=== PATIENT | female | born 1940 | race Caucasian/White ===

== ENCOUNTER 2016-06-18 12:14 | Emergency (ER) | payer MEDICARE, MEDICAID ==
[~2016-06-18] VITALS: Ht 162.6 cm; Wt 53.1 kg
[~2016-06-18 12:14] MED LIST: AMLO2.5T PO; LORA0.5T PO; MTH10T PO; PRAV10TA2 PO
[2016-06-18 12:19] VITALS: BP 186/83; PULSE 83; RESP 20; O2SAT 100
[2016-06-18 13:39] LABS: BASOPHILS % (AUTO) 0.2 % (0-3); EOSINOPHILS % (AUTO) 0.2 % (0-5); MONOCYTES % (AUTO) 4.7 % (4-12); Mean Corpuscular Hemoglobin 32.6 pg (27.0-35.0); Mean Corpuscular Volume 96.1 fL (81-100); NEUTROPHILS % (AUTO) 81.8 % (40-74); Platelet Count 214 bil/L (150-400)
[2016-06-18 13:55] LABS: Magnesium 2.1 mg/dL (1.6-2.6)
--- NOTE | 2016-06-18 15:00 | ED.REPORT ---
HPI-General Illness Date of Service Jun 18, 2016 ED Provider: Doc,Ed MD The patient is a 75 year old female with history of hypertension who presents to the emergency department with multiple complaints. Over the last month her blood pressure has been more elevated. Today she took her blood pressure at [employer] and it was at 210/96. She has also noticed intermittent numbness, weakness, and shakiness, in her upper and lower extremities. She has also felt off balance. She denies headache, speech changes or visual changes. She has been experiencing abdominal pain and is scheduled to have a CT scan on Tuesday. She denies any recent illnesses. Nursing Notes Stated Complaint: SHAKING/LEGS AND ARMS NUMB Chief Complaint: Neuro Symptoms/ Deficits Nursing Notes Reviewed: Yes Allergies: Coded Allergies: amitriptyline (Verified Allergy, Unknown, 02/18/16) citalopram (Verified Allergy, Unknown, 02/18/16) codeine (Verified Allergy, Unknown, 02/18/16) duloxetine (Verified Allergy, Unknown, 02/18/16) hydrocodone (Verified Allergy, Unknown, 02/18/16) olanzapine (Verified Allergy, Unknown, 02/18/16) tramadol (Verified Allergy, Unknown, 02/18/16) Scheduled Amlodipine (Amlodipine) 2.5 Mg Tablet 2.5 MG PO DAILY Lisinopril (Lisinopril) 5 Mg Tablet 5 MG PO DAILY Methadone (Methadone) 10 Mg Tab 10 MG PO BID Pravastatin (Pravastatin) 10 Mg Tablet 5 MG PO HS Scheduled PRN Lorazepam (Lorazepam) 0.5 Mg Tablet 0.5-1 MG PO HS PRN PRN For Insomnia General Time Seen by MD: 15:00 Chief Complaint Multip medical complaints Hx Obtained From: Patient, Daughter Arrived By: Walk-in Sudden in Onset?: No Onset Occurred: More than a week ago... Symptom Duration: Since onset Severity: Current: No pain currently Severity: Maximum: No pain Recent Healthcare: No recent hospitalization Similar Sx Previous: No Past Medical History Past Medical History Hypertension Kidney stones Fibromylagia Chronic back pain Osteoarthritis TIA Depression Hyperparathyroidism Carotid artery stenosis Past Surgical History Left carotid endarterectomy Reports: Appendectomy, Hysterectomy, Tonsillectomy Family History Noncontributory Smoking History Current Every Day Smoker Social History Other Social History: Good social support, Local resident Ambulatory Status Independent Review of Systems +elevated blood pressure Full Review of Systems Constitutional: Denies: Fever Ears / Nose / Throat: Denies: Nasal congestion, Sore throat Respiratory: Denies: Non-productive cough, Prod cough, green, Prod cough, white , Prod cough, yellow GI: Reports: Abdominal pain, Denies: Diarrhea, Vomiting Neurologic: Reports: Focal weakness, Numbness, Problem walking (off-balance), Shaking, Denies: Headache, Slurred speech, Unable to speak, Vision change Complete sys rev & neg: except as marked. Physical Exam Vital Signs Vital Signs Date Time Temp Pulse Resp B/P Pulse Ox O2 Delivery O2 Flow Rate FiO2 06/18/16 16:15 36.6 62 16 159/73 99 Room Air 06/18/16 15:49 36.6 62 16 159/73 99 Room Air 06/18/16 12:19 36.9 83 20 186/83 100 Room Air Initial VS: Reviewed Head / Eyes: Atraumatic, Normocephalic, PERRL ENT: Mucous membranes moist, Conjunctiva normal, No scleral icterus Neck: Supple, Non-tender, Full range of motion Respiratory: Breath sounds normal, Clear to auscultation, No respiratory distress Cardiovascular: Regular rate & rhythm, Heart sounds normal, Intact distal pulses Abdomen / GI: Soft, Non-tender, No guarding, No rebound, No distention Lymphatic: No lymphadenopathy Extremities: No swelling, No tenderness Skin: Warm, Dry, No cyanosis Psychiatric: Mood/affect normal, Behavior normal, Normal thought content General/Constitutional: Awake, Alert, Cooperative Neurologic: Oriented X3, Speech NL, No motor deficits, No sensory deficits, Memory NL 5/5 strength to her upper and lower extremities. No involuntary spasms. Interpretation & Diagnostics Lab Results Interpretation Result Diagram: 06/18/16 1326 06/18/16 1326 Test 06/18/16 13:26 White Blood Count 6.2th/mm3 (3.8-10.1) Red Blood Count 4.11mil/mm3 (3.90-5.20) Hemoglobin 13.4g/dL (12.0-15.6) Hematocrit 39.5% (35.0-46.0) Mean Corpuscular Volume 96.1fL (81-100) Mean Corpuscular Hemoglobin 32.6pg (27.0-35.0) Mean Corpuscular Hemoglobin Concent 33.9% (32.0-37.0) Red Cell Distribution Width 12.4% (12.3-15.4) Platelet Count 214bil/L (150-400) Neutrophils (%) (Auto) 81.8% (40-74) Lymphocytes (%) (Auto) 12.9% (14-46) Monocytes (%) (Auto) 4.7% (4-12) Eosinophils (%) (Auto) 0.2% (0-5) Basophils (%) (Auto) 0.2% (0-3) Sodium Level 135mEq/L (134-144) Potassium Level 4.4mEq/L (3.5-5.2) Chloride Level 98mEq/L (97-108) Carbon Dioxide Level 21mmol/L (18-29) Blood Urea Nitrogen 17mg/dL (8-27) Creatinine 1.24mg/dL (0.57-1.00) Estimat Glomerular Filtration Rate 61mL/min (>59) Glucose Level 120mg/dL (60-99) Calcium Level 11.3mg/dL (8.5-10.1) Magnesium Level 2.1mg/dL (1.6-2.6) Total Bilirubin 0.4mg/dL (0.0-1.2) Aspartate Amino Transf (AST/SGOT) 25U/L (0-50) Alanine Aminotransferase (ALT/SGPT) 20U/L (0-32) Alkaline Phosphatase 71U/L (25-165) Total Protein 7.4g/dL (6.4-8.4) Albumin 4.8g/dL (3.4-5.0) Lipase 24U/L (13-60) Hold Stroud Top Tube Received (Received) Re-Eval/Medical Decision Med Decision/Clinical Course Overall patient has a very onset of symptomatology that does not seem to fit with stroke acute CT, life-threatening vascular injury, autoimmune disorder, Guillain-Bermudez or other progressive neurologic disease that would require her to be admitted. Hopefully her chief complaint was that incidentally her blood pressure was elevated. She does have mild hypercalcemia of unclear etiology but does not need immediate attention. I did strongly encourage her to follow-up with her primary care doctor for ongoing symptoms and return here as needed if worse. Source of Hx: Old records, Family Time of Eval: 15:13 Re-Evaluation/Progress Note: Discussed plan for workup and discharge. Counseled Regarding: Diagnosis, Lab results, Need for follow-up, When/why to return to ED Discharge & Departure Primary Impression: Hypertension Hypertension type: unspecified secondary hypertension Qualified Code: I15.9 - Secondary hypertension, unspecified Additional Impression: History of paresthesia Discharge Condition All VS Reviewed: Yes Condition: Stable Additional Instructions: Thank you for entrusting us with your care today. I had lisinopril to your other medications. Follow-up with your primary care doctor as planned early next week. Please return to the emergency department for any new or concerning symptoms. Referrals: Karsten Pearce MD (PCP) Scribe Attestation Portions of this note were transcribed by Pretty Zhu. I, Dr. Salazar personally performed the history, physical exam and medical decision-making; I reviewed and confirmed the accuracy of the information in the transcribed note. Signed by: Lenny Mccarthy, 06/18/2016 at 1605. copies to: Karsten Pearce MD, Timothy S DO Jun 18, 2016 15:00 Pretty Zhu Jun 18, 2016 15:12
[2016-06-18 15:49] VITALS: BP 159/73; PULSE 62; RESP 16; O2SAT 99
[2016-06-18] MEDS ORDERED: LISI-571 PO (15:52)
[2016-06-18 16:15] VITALS: BP 159/73; PULSE 62; RESP 16; O2SAT 99
[2016-08-04] MEDS ORDERED: ZLP10T PO (14:37)
[2016-08-04] MEDS ORDERED: FLUT16SP NS (14:37)
[2016-08-04] MEDS ORDERED: ASPI-973 PO (14:37)
== END 2016-06-18 16:12 | disposition home or self-care (01) ==
LOC: SED 12:14
DX: I15.9 Secondary hypertension, unspecified (principal); Z86.73 Personal history of transient ischemic attack (TIA), and cerebral infarction without residual deficits; F17.200 Nicotine dependence, unspecified, uncomplicated; Z90.710 Acquired absence of both cervix and uterus

== ENCOUNTER 2016-08-05 07:45 | Day surgery (SDC) | payer MEDICARE, MEDICAID ==
[2016-08-05] VITALS (7 sets, daily range): BP systolic 132–141; BP diastolic 53–59; PULSE 46–70; RESP 16–17; O2SAT 94–100
[~2016-08-05] VITALS: Ht 162.6 cm; Wt 55.2 kg
[~2016-08-05 07:45] MED LIST changes: +ASPI-973 PO; +FLUT16SP NS; +ZLP10T PO
[2016-08-05] MEDS ORDERED: Propofol 10,000 mCg/mL 20 mL Inj ONE (07:46)
[2016-08-05] MEDS ORDERED: Ondansetron 2 mg/mL 2 mL Inj ONE (07:46)
[2016-08-05] MEDS ORDERED: Dexamethasone 4 mg/mL Inj ONE (07:46)
--- NOTE | 2016-08-05 08:36 | DRSVH ---
PROCEDURE: X-RAY KUB ([id number]) INDICATIONS: LEFT URETERAL STONE TECHNIQUE: One view of the abdomen acquired. COMPARISON: [facility], CR, XR KUB, 02/19/2016, 10:11. [facility], CT, CT A BD PELVIS W CON, 06/22/2016, 14:58. [facility], CR, XR KUB, 03/03/2016, 9:06. FINDINGS: Surgical changes and devices: None. Bowel: Bowel gas pattern is normal. Soft tissues: 1 cm calcification projected over the left flank in the region of the proximal anterior . Multiple right pelvic calcifications again noted related to phleboliths. Bones: No suspicious bony lesions. IMPRESSION: 1 cm proximal left ureteral calcification similar in position to prior CT scan. Dictated by: Yuri Rodriguez [facility] Interpreted: William Bray MD on 08/05/2016 at 8:33 Transcribed by: VIJAY on 08/05/2016 at 8:36 Approved by: William Bray M.D. on 08/05/2016 at 12:29
[2016-08-05] MEDS: Lactated Ringer's 1,000 ML IV SCH ×2 (08:48→10:13)
[2016-08-05] MEDS ORDERED: oxyCODONE-Acetamin 5-325 mg Tablet PO PRN (10:30)
[2016-08-05] MEDS ORDERED: Lactated Ringer's 500 ML IV PRN (10:34)
[2016-08-05] MEDS ORDERED: Lactated Ringer's 1,000 ML IV SCH (10:34)
[2016-08-05] MEDS ORDERED: Labetalol 5 mg/mL 4 mL Inj IV PRN (10:35)
[2016-08-05] MEDS ORDERED: Phenylephrine 10,000 mCg/mL Inj IVPUSH PRN (10:35)
[2016-08-05] MEDS ORDERED: Ondansetron 2 mg/mL 2 mL Inj IVPUSH PRN (10:35)
[2016-08-05] MEDS ORDERED: fentaNYL-PF 50 mCg/mL 2 mL Inj IVPUSH PRN (10:35)
[2016-08-05] MEDS ORDERED: EPHEDrine Sulfate 50 mg/mL Inj IVPUSH PRN (10:35)
[2016-08-05] MEDS ORDERED: Atropine 0.4 mg/mL Inj IVPUSH PRN (10:35)
--- NOTE | 2016-08-05 10:37 | PCM.HPANE ---
Patient Data Surgeon Admitting Provider: Attending Provider:Marisela Lovell MD Primary Care Physician:Karsten Perace MD Other Provider:[facility] Reason for Visit Left Ureteral Stone Ht/WT & BMI Height (Feet): 5 Height (Inches): 4 Weight (Kilograms): 55.2 Body Mass Index 20.00 Allergies Coded Allergies: amitriptyline (Verified Allergy, Unknown, 08/04/16) citalopram (Verified Allergy, Unknown, 08/04/16) codeine (Verified Allergy, Unknown, 08/04/16) duloxetine (Verified Allergy, Unknown, 08/04/16) hydrocodone (Verified Allergy, Unknown, 08/04/16) olanzapine (Verified Allergy, Unknown, 08/04/16) tramadol (Verified Allergy, Unknown, 08/04/16) Past Anesthesia History Anesthesia History: Denies:: Abnormal Airway, Anesthesia Reactions, Difficult Intubation, Fam Anesthesia Reaction, Fam Malignant Hypertherm, Malignant Hyperthermia Diabetes History Hx Diabetes?: No MRSA MRSA: No Medications Hypertension Medication: Yes Home Meds Incl Beta John: No Reported Medications Aspirin 81 Mg [id number] Mg PO DAILY Ref 0 08/04/16 Pravastatin 10 Mg Tablet5 Mg PO HS Ref 0 02/18/16 Methadone 10 Mg Tab5 Mg PO BID Ref 0 02/18/16 Lorazepam 0.5 Mg Tablet0.5-1 Mg PO HS PRN For Insomnia Ref 0 02/18/16 Amlodipine 2.5 Mg Tablet5 Mg PO DAILY Ref 0 02/18/16 Discontinued Reported Medications Zolpidem (Ambien)10 Mg Tablet5-10 Mg PO HS PRN For Insomnia Ref 0 08/04/16 Fluticasone Propionate (Fluticasone Propionate Nasal)16 Gm [place].susp1 [place] NS BID #16 GM Ref 0 08/04/16 Discontinued Scripts Lisinopril 5 Mg Tablet5 Mg PO DAILY #30 TABLET Ref 0 Prov:Venkata Salazar DO 06/18/16 History History of ENT Problems?: Yes HEENT History: Positive for:: Cataracts Sinus Problem TMJ Denies:: Hearing Problem Denture Type: Full- Upper Full- Lower Teeth Condition: Missing Teeth Hx of Heart Problems?: Yes Cardiovascular History: Positive for:: Cardiac Surgery (LEFT CAROTID ENDARTERECTOMY) Hypertension Denies:: AICD Abdominal Aortic Aneurism Atrial Fibrillation Chest Pain Congestive Heart Failure Coronary Artery Disease Edema Heart Murmur Irregular Heartbeat Pacemaker Peripheral Vascular Rheumatic Fever Thrombophlebitis Valvular Heart Disease Hx of Respiratory Problem?: No Respiratory History: Denies:: Asthma COPD Chest Surgery Cough Dyspnea Emphysema Hemoptysis Oxygen Administration Pneumonia Pulmonary Embolism Tuberculosis Use of C-PAP Machine Use of Inhalers / NEBS Hx Neurologic Problems?: Yes Neurological History: Positive for:: CVA ("long time ago") Headaches Denies:: Alzheimer's Disease Dementia Dizziness Multiple Sclerosis Parkinson's Disease Peripheral Neuropathy Seizures TIA Hx of GI Problems?: Yes Gastrointestinal History: Denies:: Cirrhosis Diverticulitis Gall Bladder Disease Gastroesphageal Reflux Gastrointestinal Bleeding Heartburn Hepatitis Hiatal Hernia Liver Disease Rectal Bleeding Hx of Problems?: Yes Genitourinary History: Positive for:: Kidney Stones HX of Peritoneal Dialysis: No Female Hx: Denies:: Currently Endometriosis Pelvic Inflammatory Problems with Breasts? Skin History: Positive for:: History Skin Disorders? (rash - dr jone arredondo) Denies:: Pressure Ulcers Hx Musculoskeletal Problems?: Yes Musculoskeletal History: Positive for:: Back Injury (chronic back pain / methadone) Fibromyalgia Osteoarthritis Denies:: Degenerative Joint Joint Replacement Musculoskeletal Trauma Myasthenia Gravis Rheumatoid Arthritis Systemic Lupus Hx of Psycho/Social Problems?: Yes Psycho Social History: Positive for:: Hx Depression Denies:: Anxiety Bipolar Disorder Suicide Attempt Hx Surgeries?: Yes (carotid endarterectomy, hysterectomy, appy, tonsils ) Hx Any Other Health Problems?: Yes Other History: Positive for:: Endocrine Disease (hyperparathyroidism, asymptomatic) Hospitalization (frozen shoulder) Denies:: Cancer (pre cancerous) Thyroid Disease History Blood Transfusions: Denies:: Accept Blood Products? Blood Transfuse Reaction Blood Transfusions Hx Diabetes: No Hx Alcohol Use: NoHx Substance Use: No Smoking Status: Current Every Day Smoker Have You Smoked inLast 12 mo: Yes (1/2 ppd) Stop/Bang S-Snoring: Do You Snore Loudly: No T-Tired: feel tired, fatigued: No O-Obsered: Observed not breath: No P-Blood Pressure: treated: Yes B- Body Mass Index > 35 kg/m2: No A- Age over 50: Yes N- Neck Large Circumference: No G- Gender Male: No FRANCISCA Total Score: 2 Risk Assessment Category Category 1A: Patient has history of documented sleep apnea, and HAS NOT received any narcotic, sedative or anesthesia administration during this stay. Category 1B: Patient has history of documented sleep apnea, and HAS received any narcotic , sedative or anesthesia administration during this stay Category 2: Patient has SUSPECTED Obstructive Sleep Apnea, and HAS received any narcotic , sedative or anesthesia administration during this stay. Category 3: Patient has SUSPECTED Obstructive Sleep Apnea and HAS NOT received narcotic, sedative or anesthesia administration during this stay. Category 4: Outpatient in Procedural Areas with known sleep apnea or who screen positive for High Risk via the STOP/BANG questionnaire. Exam Exam Vital Signs Vital Signs Date Time Temp Pulse Resp B/P Pulse Ox O2 Delivery O2 Flow Rate FiO2 08/05/16 08:34 36.3 46 16 132/53 98 Room Air General Appearance: Alert, Oriented X3, Cooperative, No Acute Distress HEENT/AIRWAY: MP 2 Lungs: Clear to Auscultation, Normal Air Movement Heart: Exam Unremarkable, Regular Rate/Rhythm, No Murmurs/Rubs/Gallops Meds/Labs/Diagnostics Admission Meds Current Medications Lactated Ringer's (Lr) 1,000 ml @ 120 mls/hr [id number] IV Last administered on t 08:48; Start 08/05/16 at 05:00; Stop 08/05/16 at 13:19 Plan Impression Patient chart reviewed, patient interviewed and anesthestic plan with risks, benefits, and alternatives discussed, and informed consent obtained. NPO per Anesth. Guidelines: Yes ASA Physical Status: ASA2 Mod Systemic Disease Anesthetic Plan: GA Bene/Risks/Altern/Consents: Yes HP Complete Prior to Induction: Yes Ilya Arzola MD Aug 05, 2016 09:45
--- NOTE | 2016-08-05 12:11 | PCM.ANEP1 ---
Post Anesthesia PACU Phase 1 Assessment Vital Signs Vital Signs Date Time Temp Pulse Resp B/P Pulse Ox O2 Delivery O2 Flow Rate FiO2 08/05/16 11:52 35.9 54 16 132/57 99 Room Air 08/05/16 11:40 36.3 53 16 137/58 94 Room Air 08/05/16 11:35 52 16 137/56 100 Room Air 08/05/16 11:30 57 16 137/57 100 Simple Mask 8 08/05/16 11:25 36.4 54 17 135/59 100 Simple Mask 8 08/05/16 08:34 36.3 46 16 132/53 98 Room Air Anesthetic Administered: GA Level of Alertness: Awake, talking GUTIERREZ's with Equal Strength: Yes Pain: No Nausea or Vomiting: No CV Function & Hydration Stable: No Airway Device: Oxygen Delivery: Room Air Lungs: Clear to Auscultation, Normal Air Movement Dermatome Level: Full Sensation PACU Phase 2 Assessment Complications: No Follow up Care: N/A Patient Instructions Provided: N/A Ilya Arzola MD Aug 05, 2016 12:11
--- NOTE | 2016-08-05 13:21 | OP ---
[address] [address] OPERATIVE REPORT PATIENT: JOHNSON YEAGER : 1940 MR#: [id number] ADMIT: 08/05/2016 JOB ID: [id number] DATE OF SURGERY: 08/05/2016 PREOPERATIVE DIAGNOSIS(ES): Left ureteral stone. POSTOPERATIVE DIAGNOSIS(ES): Left ureteral stone. PROCEDURE PERFORMED: 1. Left extracorporeal shock wave lithotripsy. 2. Cystoscopy and left retrograde pyelogram. 3. Left ureteral stent placement. SURGEON: Marisela Lovell M.D. BEDSPREAD SEAMER: None. FINDINGS: Stone fragments within the bladder status post extracorporeal shockwave lithotripsy. ANESTHESIA: General. ESTIMATED BLOOD LOSS: None. DRAINS: 6 x 24 left double-J ureteral stent. SPECIMENS: None. COMPLICATIONS: None. CONDITION: Stable. INDICATIONS FOR PROCEDURE: The patient is a 75-year-old woman with a left ureteral stone. She had undergone shockwave lithotripsy in the past. This appears to be a remnant stone from that procedure. DESCRIPTION OF PROCEDURE: After informed consent was obtained, the patient was taken to the operating room. A time-out was performed identifying correct patient, surgical site and procedure. She was placed in supine position over the Lithotripter and all pressure points were identified and appropriately padded. The stone was seen within the cross hairs of the fluoroscopic device. 2500 shocks were applied to it at a maximum power level of 5. There was some hazing of the stone. The patient was then placed in the lithotomy position. All pressure points were identified and appropriately padded. Her genitals were then prepped and draped in the sterile fashion. A 22-Algerian rigid cystoscope was applied to the patient's urethra and advanced into the bladder. The bladder was drained. The left ureteral orifice was seen in orthotopic position. There were stone fragments seen within the patient's bladder. Left retrograde pyelogram was performed. It appeared normal. At sensor tip wire was then loaded into the renal pelvis as seen under fluoroscopy and a 6 x 24 double-J ureteral stent was loaded over it into the renal pelvis as seen under fluoroscopy. The wire was then removed leaving a nice coil in the patient's bladder seen under direct vision. The bladder was then drained. The patient was then reversed from general anesthesia and taken to PACU in good and stable condition. DAQUAN
== END 2016-08-05 23:59 | disposition home or self-care (01) ==
LOC: SAS 07:45
PROVIDERS: ATTEND Urology
DX: N13.2 Hydronephrosis with renal and ureteral calculous obstruction (principal); I10 Essential (primary) hypertension; E83.52 Hypercalcemia; G89.29 Other chronic pain; M79.7 Fibromyalgia; M19.90 Unspecified osteoarthritis, unspecified site; K21.9 Gastro-esophageal reflux disease without esophagitis; F11.20 Opioid dependence, uncomplicated; F17.210 Nicotine dependence, cigarettes, uncomplicated; Z79.82 Long term (current) use of aspirin; Z90.710 Acquired absence of both cervix and uterus
CPT/HCPCS: 50590; 52332; 74000; C2617; J1100; J2405; J7120